=== PATIENT | male | born 1955 | race Caucasian/White ===

== ENCOUNTER 2019-02-05 17:05 | Emergency (ER) | payer MEDICAID ==
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
[2019-02-05] MEDS ORDERED: ACETAMINOPHEN 500 MG TAB PO ONE (19:16)
[2019-02-05 19:34] VITALS: BP 138/78
== END 2019-02-05 19:35 | disposition home or self-care (01) ==
LOC: EDUNIT#
PROC: 0HQ1XZZ Repair Face Skin, External Approach (ICD-10-PCS; principal; 2019-02-05)
DX: S01.81XA Laceration without foreign body of other part of head, initial encounter (principal); S02.402A Zygomatic fracture, unspecified side, initial encounter for closed fracture; Y08.02XA Assault by strike by baseball bat, initial encounter; Y92.9 Unspecified place or not applicable; Y93.9 Activity, unspecified; Y99.9 Unspecified external cause status